=== PATIENT | female | born 1955 | race Caucasian/White ===

== ENCOUNTER 2020-04-20 06:58 | Emergency (ER) | payer MEDICARE, BC ==
[~2020-04-20] VITALS: Ht 167.6 cm; Wt 118.0 kg
[2020-04-20] MEDS ORDERED: LIDOcaine 1% W/epiNEPHrine 1:200,000 10ml vial IJ ONE (07:35)
[2020-04-20] MEDS ORDERED: LIDOcaine 1% w/epiNEPHrine 1:200,000 30ml vial IJ ONE (07:35)
[2020-04-20] MEDS ORDERED: TETanus/Pertussis (Acell)/Diphther VAC/PF (Tdap-Adult) 0.5ml syringe IMVAC ONE (07:35)
[2020-04-20] MEDS ORDERED: ibuprofen 200mg tablet PO ONE (08:40)
[2020-04-20] MEDS ORDERED: CLIN-97 PO (09:49)
[2020-04-20 10:14] VITALS: BP 168/76
== END 2020-04-20 10:16 | disposition home or self-care (01) ==
LOC: ER 06:59
DX: S02.5XXA Fracture of tooth (traumatic), initial encounter for closed fracture (principal); S01.511A Laceration without foreign body of lip, initial encounter; I10 Essential (primary) hypertension; E11.9 Type 2 diabetes mellitus without complications; Z88.1 Allergy status to other antibiotic agents; Z88.0 Allergy status to penicillin; Z88.2 Allergy status to sulfonamides; W06.XXXA Fall from bed, initial encounter; Y93.89 Activity, other specified; Y92.89 Other specified places as the place of occurrence of the external cause; Y99.9 Unspecified external cause status
CPT/HCPCS: 12011; 72040; 90471; 90715; 99284

== ENCOUNTER 2020-05-31 17:40 | Emergency (ER) | payer MEDICARE, BC ==
[~2020-05-31] VITALS: Ht 167.6 cm; Wt 122.7 kg
[~2020-05-31 17:40] MED LIST: CLIN-97 PO
[2020-05-31 17:46] VITALS: BP 184/81
== END 2020-05-31 20:03 | disposition home or self-care (01) ==
LOC: ER 17:41
DX: L25.8 Unspecified contact dermatitis due to other agents (principal); T38.0X5A Adverse effect of glucocorticoids and synthetic analogues, initial encounter; I10 Essential (primary) hypertension; E11.9 Type 2 diabetes mellitus without complications; E07.9 Disorder of thyroid, unspecified; Z88.1 Allergy status to other antibiotic agents; Z88.8 Allergy status to other drugs, medicaments and biological substances; Z88.5 Allergy status to narcotic agent; Z79.899 Other long term (current) drug therapy; Y92.89 Other specified places as the place of occurrence of the external cause
CPT/HCPCS: 99282